=== PATIENT | female | born 1990 | race Caucasian/White ===

== ENCOUNTER 2018-06-06 19:06 | Emergency (ER) | payer OTHER, BC ==
[2018-06-06] MEDS ORDERED: diphenhydrAMINE 50 MG/ML SDV IVPUSH ONE (20:06)
[2018-06-06] MEDS ORDERED: Metoclopramide 10 MG/2 ML SDV IVPUSH ONE (20:06)
[2018-06-06] MEDS ORDERED: Sodium Chloride 0.9% 10 ML Syringe FLUSH PRN (20:06)
[2018-06-06] MEDS ORDERED: Ketorolac 30 MG/ML SDV IVPUSH ONE (20:06)
--- NOTE | 2018-06-06 20:14 | EDM.PDOC ---
ED HPI GENERAL MEDICAL PROBLEM - General Chief Complaint: Head Injury Stated Complaint: HEAD INJURY Time Seen by Provider: 06/06/18 19:53 Source of Information: Reports: Patient, RN Notes Reviewed History Limitations: Reports: No Limitations - History of Present Illness INITIAL COMMENTS - FREE TEXT/NARRATIVE: Patient is a 28-year-old female who presents to the ED [facility] for the evaluation of a head injury. She states that she sustained this head injury at work. 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 She notes that she has a headache that radiates all across the front of her head at about a 7 out of 10 right now. She did take some powdered aspirin for pain relief however this has not provided much relief. She noted some slightly blurry vision shortly after the incident, but does not relate any loss of consciousness or blackout. She further notes that she couldn't focus after the incident with also some mild nausea noted. She states she is not on any medications, no blood thinners does not have a history of blood clot/bruising/ easy bleeding, but is on a NuvaRing for control. She further notes that she does not have any primary care provider at this time. Frontal Headache Pain Score (Numeric/FACES): 5 - Related Data Allergies Allergy/AdvReac Type Severity Reaction Status Date / Time Penicillins Allergy Rash Verified 06/06/18 19:17 Home Meds: Home Meds Non-Formulary Medication [NF Drug] 1 each VAG ASDIRECTED 06/06/18 [History] Past Medical History Respiratory History: Reports: Asthma Neurological History: Reports: Migraines - Past Surgical History Musculoskeletal Surgical History: Reports: ORIF Social & Family History - Family History Family Medical History: Noncontributory - Tobacco Use Smoking Status *Q: Never Smoker - Caffeine Use Caffeine Use: Reports: Coffee - Recreational Drug Use Recreational Drug Use: No ED ROS GENERAL - Review of Systems Review Of Systems: See Below Constitutional: Reports: No Symptoms HEENT: Reports: No Symptoms Respiratory: Reports: No Symptoms Cardiovascular: Reports: No Symptoms Endocrine: Reports: No Symptoms GI/Abdominal: Reports: No Symptoms : Reports: No Symptoms Musculoskeletal: Reports: No Symptoms Skin: Reports: No Symptoms Neurological: Reports: Headache Psychiatric: Reports: No Symptoms Hematologic/Lymphatic: Reports: No Symptoms Immunologic: Reports: No Symptoms ED EXAM, HEAD INJURY - Physical Exam Exam: See Below Exam Limited By: No Limitations General Appearance: Alert, WD/WN, No Apparent Distress (Patient is able to answer questions appropriate relief, but seems somewhat sluggish) Head: Atraumatic, Normocephalic Nexus Criteria: No: Posterior, Midline Cervical Tenderness, Evidence of Intoxication, Altered Level of Consciousness, Focal Neurological Deficit, Painful Distraction Injuries Eyes: Bilateral Eye: EOMI, Normal Inspection, PERRL Ears: Normal External Exam, Normal Canal, Hearing Grossly Normal, Normal TMs Nose: Normal Inspection, Normal Mucousa, No Blood Throat/Mouth: Normal Inspection, Normal Lips, Normal Teeth, Normal Gums, Normal Oropharynx, Normal Voice, No Airway Compromise Neck: Non-Tender, Full Range of Motion, Normal Alignment, Normal Inspection Respiratory: No Respiratory Distress, Lungs Clear, Normal Breath Sounds, No Accessory Muscle Use, Chest Non-Tender Cardiovascular: Normal Peripheral Pulses, Regular Rate, Rhythm, No Murmur Back Exam: Normal Inspection, Full Range of Motion Extremities: Normal Inspection, Normal Capillary Refill Neurologic: No Motor/Sensory Deficits, Alert, Normal Mood/Affect, Oriented x 3 Skin: Normal Color, Warm/Dry - Cesar Coma Score Best Eye Response (Cesar): (4) Open Spontaneously Best Verbal Response ([place]): (5) Oriented Best Motor Response ([place]): (6) Obeys Commands Cesar Total: 15 Course - Vital Signs Last Recorded V/S: Last Vital Signs Temp 97.2 F 06/06/18 19:12 Pulse 63 06/06/18 19:12 Resp 18 06/06/18 19:12 BP 147/95 H 06/06/18 19:12 Pulse Ox 100 06/06/18 19:12 - Orders/Labs/Meds Orders: Active Orders 24 hr Category Date Time Status Peripheral IV Care [RC] . DIRECTED Care 06/06/18 20:06 Active Sodium Chloride 0.9% [Normal Saline] 1,000 ml Med 06/06/18 20:15 Active IV ASDIRECTED Sodium Chloride 0.9% [Saline Flush] Med 06/06/18 20:06 Active 10 ml FLUSH ASDIRECTED PRN Peripheral IV Insertion Adult [OM.PC] Routine Oth 06/06/18 20:06 Ordered Medication Orders Sodium Chloride (Normal Saline) 1,000 mls @ 125 mls/hr IV ASDIRECTED CALEB Last Admin: 06/06/18 20:20 Dose: 125 mls/hr Sodium Chloride (Saline Flush) 10 ml FLUSH ASDIRECTED PRN PRN Reason: Keep Vein Open Last Admin: 06/06/18 20:24 Dose: 10 ml Meds: Medications Generic Name Dose Route Start Last Admin Trade Name Freq PRN Reason Stop Dose Admin Sodium Chloride 1,000 mls @ 125 mls/hr 06/06/18 20:15 06/06/18 20:20 Normal Saline IV 125 mls/hr ASDIRECTED CALEB Administration Sodium Chloride 10 ml 06/06/18 20:06 06/06/18 20:24 Saline Flush FLUSH 10 ml ASDIRECTED PRN Administration Keep Vein Open Discontinued Medications Generic Name Dose Route Start Last Admin Trade Name Freq PRN Reason Stop Dose Admin Diphenhydramine HCl 25 mg 06/06/18 20:06 06/06/18 20:26 Benadryl IVPUSH 06/06/18 20:07 25 mg ONETIME ONE Administration Ketorolac Tromethamine 30 mg 06/06/18 20:06 06/06/18 20:23 Toradol IVPUSH 06/06/18 20:07 30 mg ONETIME ONE Administration Metoclopramide HCl 10 mg 06/06/18 20:06 06/06/18 20:20 Reglan IVPUSH 06/06/18 20:07 10 mg ONETIME ONE Administration - Re-Assessments/Exams Free Text/Narrative Re-Assessment/Exam: 06/06/18 20:14 Patient presents to the ED for the evaluation of head injury. She is complaining mostly of a headache at this time and does appear to elicit some postconcussive syndromes. I did order 10 mg IV Reglan, 25 mg IV Benadryl, 30 mg IV Toradol and an IV fluid bolus to help with the headache. I did educate the patient on postconcussive syndrome, she does not work tomorrow and states she will try to limit her activities. 06/06/18 21:10 Patient was reassessed at bedside and states that her headache has improved. She would like to go home and sleep tonight. I will discharge her home in care of her boyfriend who is currently in the room with her. Departure - Departure Time of Disposition: 21:11 Disposition: Home, Self-Care 01 Condition: Fair Clinical Impression: Post concussive syndrome Headache Qualifiers: Headache type: post-traumatic Headache chronicity pattern: acute headache Intractability: not intractable Qualified Code(s): G44.319 - Acute post- traumatic headache, not intractable - Discharge Information *PRESCRIPTION DRUG MONITORING PROGRAM REVIEWED*: No *COPY OF PRESCRIPTION DRUG MONITORING REPORT IN PATIENT KRISTIAN: No Instructions: Post-Concussion Syndrome, [id number], Head Injury, Adult, Easy- to-Read Referrals: PCP,None [Primary Care Provider] - Forms: ED Department Discharge Additional Instructions: You have been evaluated in the ED tonight for your headache and post concussion- like symptoms. You have been treated in the ED tonight with medications that should help your headache. Please limit activities over the next 24 hours so that you may give your brain some time to heal. Please limit screen time in this timeframe. You may return to work without restrictions on of this week. Please return to the ED if her symptoms change or worsen. - My Orders Last 24 Hours: My Active Orders 06/06/18 20:06 Peripheral IV Care [RC] . DIRECTED Sodium Chloride 0.9% [Saline Flush] 10 ml FLUSH ASDIRECTED PRN Peripheral IV Insertion Adult [OM.PC] Routine 06/06/18 20:15 Sodium Chloride 0.9% [Normal Saline] 1,000 ml IV ASDIRECTED - Assessment/Plan Last 24 Hours: My Active Orders 06/06/18 20:06 Peripheral IV Care [RC] . DIRECTED Sodium Chloride 0.9% [Saline Flush] 10 ml FLUSH ASDIRECTED PRN Peripheral IV Insertion Adult [OM.PC] Routine 06/06/18 20:15 Sodium Chloride 0.9% [Normal Saline] 1,000 ml IV ASDIRECTED
[2018-06-06] MEDS ORDERED: Sodium Chloride 0.9% 1,000 ML IV SCH (20:15)
== END 2018-06-06 21:27 | disposition home or self-care (01) ==
LOC: JD.ED 19:06
DX: G44.319 Acute post-traumatic headache, not intractable (principal); F07.81 Postconcussional syndrome
CPT/HCPCS: 96361; 96374; 96375; 99283; J1200; J1885; J2765; J7040; 99284

== ENCOUNTER 2018-06-08 13:16 | Emergency (ER) | payer OTHER, BC ==
[2018-06-08] MEDS ORDERED: Ketorolac 30 MG/ML SDV IVPUSH ONE (13:49)
[2018-06-08] MEDS ORDERED: Sodium Chloride 0.9% 10 ML Syringe FLUSH PRN (13:49)
[2018-06-08] MEDS ORDERED: diphenhydrAMINE 50 MG/ML SDV IVPUSH ONE (13:49)
[2018-06-08] MEDS ORDERED: Metoclopramide 10 MG/2 ML SDV IVPUSH ONE (13:49)
--- NOTE | 2018-06-08 13:57 | EDM.PDOC ---
ED HPI GENERAL MEDICAL PROBLEM - General Chief Complaint: Headache Stated Complaint: MIGRAINE Time Seen by Provider: 06/08/18 13:40 Source of Information: Reports: Patient, RN Notes Reviewed History Limitations: Reports: No Limitations - History of Present Illness INITIAL COMMENTS - FREE TEXT/NARRATIVE: Patient is a 28-year-old female who presents to the ED for the evaluation of a headache. She was seen in this ED 2 nights ago by myself and the evaluation of a head injury sustained at work. She states that yesterday she felt okay, however this morning her headache did come back. She states that the headache is again in her frontal area, and she states there is some mild light sensitivity as well. The headache is similar to the headache she had the night of the injury. She would rate her pain at a 7 out of 10 today. She states that she did take 800 mg of ibuprofen at around 11:30 today and this didn't provide much relief. She denies any blurred vision, double vision, states that she did have some mild dizziness this morning however. Headache Pain Score (Numeric/FACES): 7 - Related Data Allergies Allergy/AdvReac Type Severity Reaction Status Date / Time Penicillins Allergy Rash Verified 06/06/18 19:17 Home Meds: Home Meds Non-Formulary Medication [NF Drug] 1 each VAG ASDIRECTED 06/06/18 [History] Past Medical History Respiratory History: Reports: Asthma Neurological History: Reports: Concussion, Migraines - Past Surgical History Musculoskeletal Surgical History: Reports: ORIF Social & Family History - Family History Family Medical History: Noncontributory - Tobacco Use Smoking Status *Q: Never Smoker - Caffeine Use Caffeine Use: Reports: Coffee, Soda - Recreational Drug Use Recreational Drug Use: No ED ROS GENERAL - Review of Systems Review Of Systems: See Below Constitutional: Reports: No Symptoms HEENT: Reports: No Symptoms Respiratory: Reports: No Symptoms Cardiovascular: Reports: No Symptoms Endocrine: Reports: No Symptoms GI/Abdominal: Reports: No Symptoms : Reports: No Symptoms Musculoskeletal: Reports: No Symptoms Skin: Reports: No Symptoms Neurological: Reports: Dizziness, Headache. Denies: Confusion, Numbness, Syncope, Tingling Psychiatric: Reports: No Symptoms Hematologic/Lymphatic: Reports: No Symptoms Immunologic: Reports: No Symptoms - Physical Exam Exam: See Below Exam Limited By: No Limitations General Appearance: Alert, WD/WN, No Apparent Distress Eye Exam: Bilateral Eye: EOMI, Normal Inspection, PERRL Ears: Normal External Exam, Normal TMs Nose: Normal Inspection Throat/Mouth: Normal Inspection, Normal Oropharynx Head Exam: Atraumatic (patient has exaggerated pain response to area where she contused her forehead.), Normocephalic Neck: Normal Inspection, Supple, Non-Tender Respiratory/Chest: No Respiratory Distress, Lungs Clear, Normal Breath Sounds, No Accessory Muscle Use, Chest Non-Tender Cardiovascular: Normal Peripheral Pulses, Regular Rate, Rhythm, No Murmur Neuro Exam (Abbreviated): Alert, Oriented, Normal Cognition, No Motor/Sensory Deficits Back Exam: Normal Inspection, Full Range of Motion Extremities: Normal Inspection, Normal Capillary Refill Psychiatric: Normal Affect, Normal Mood Skin Exam: Warm, Dry, Intact, Normal Color, No Rash Course - Vital Signs Last Recorded V/S: Last Vital Signs Temp 97.6 F 06/08/18 13:37 Pulse 83 06/08/18 13:37 Resp 20 06/08/18 13:37 BP 116/86 06/08/18 13:37 Pulse Ox 98 06/08/18 13:37 - Orders/Labs/Meds Orders: Active Orders 24 hr Category Date Time Status Peripheral IV Care [RC] . DIRECTED Care 06/08/18 13:49 Active Peripheral IV Insertion Adult [OM.PC] Routine Oth 06/08/18 13:49 Ordered Meds: Medications Discontinued Medications Generic Name Dose Route Start Last Admin Trade Name Luis Alfredoq PRN Reason Stop Dose Admin Diphenhydramine HCl 25 mg 06/08/18 13:49 06/08/18 14:02 Benadryl IVPUSH 06/08/18 13:50 25 mg ONETIME ONE Administration Sodium Chloride 1,000 mls @ 500 mls/hr 06/08/18 14:00 06/08/18 14:03 Normal Saline IV 500 mls/hr ASDIRECTED CALEB Administration Ketorolac Tromethamine 30 mg 06/08/18 13:49 06/08/18 14:02 Toradol IVPUSH 06/08/18 13:50 30 mg ONETIME ONE Administration Metoclopramide HCl 10 mg 06/08/18 13:49 06/08/18 14:02 Reglan IVPUSH 06/08/18 13:50 10 mg ONETIME ONE Administration Sodium Chloride 10 ml 06/08/18 13:49 06/08/18 14:00 Saline Flush FLUSH 10 ml ASDIRECTED PRN Administration Keep Vein Open - Re-Assessments/Exams Free Text/Narrative Re-Assessment/Exam: 06/08/18 14:00 Patient presents to the ED for the evaluation of a headache after a head injury 2 days ago. I did order IV fluids, 25 mg IV Benadryl, 30 mg IV Toradol, 10 mg Reglan for initial management of her headache. Will likely give her a note to stay off of work for the weekend with conservative measures. 06/08/18 15:32 Patient was reassessed at bedside and states that she feels much better, her headache has resolved. She is asking to be discharged home at this time. That is fine with me and I will give her a note to excuse her from work for this weekend so she may recover from her head injury. Departure - Departure Time of Disposition: 15:40 Disposition: Home, Self-Care 01 Condition: Fair Clinical Impression: Tension-type headache - Discharge Information *PRESCRIPTION DRUG MONITORING PROGRAM REVIEWED*: No *COPY OF PRESCRIPTION DRUG MONITORING REPORT IN PATIENT KRISTIAN: No Instructions: Tension Headache, Adult, [id number] Referrals: PCP,None [Primary Care Provider] - Forms: ED Department Discharge, ED Return to Work/School Form Additional Instructions: You have been evaluated in the ED today for your headache. You have been given accommodation and medications to help with this headache. Please increase your fluid intake at home, and you may take 500 mg Tylenol/600 mg ibuprofen every 6 hours in an alternating fashion as needed for further headache. Please return to the ED if your symptoms change or worsen. - My Orders Last 24 Hours: My Active Orders 06/08/18 13:49 Peripheral IV Care [RC] . DIRECTED Peripheral IV Insertion Adult [OM.PC] Routine - Assessment/Plan Last 24 Hours: My Active Orders 06/08/18 13:49 Peripheral IV Care [RC] . DIRECTED Peripheral IV Insertion Adult [OM.PC] Routine
[2018-06-08] MEDS ORDERED: Sodium Chloride 0.9% 1,000 ML IV SCH (14:00)
== END 2018-06-08 15:50 | disposition home or self-care (01) ==
LOC: JD.ED 13:16
DX: G44.209 Tension-type headache, unspecified, not intractable (principal); Z88.0 Allergy status to penicillin
CPT/HCPCS: 96361; 96374; 96375; 99283; J1200; J1885; J2765; J7040; 99284

== ENCOUNTER 2018-11-11 15:25 | Emergency (ER) | payer BC ==
--- NOTE | 2018-11-11 16:05 | EDM.PDOC ---
ED HPI GENERAL MEDICAL PROBLEM - General Chief Complaint: Upper Extremity Injury/Pain Stated Complaint: PAIN IN BOTH WRISTS Time Seen by Provider: 11/11/18 15:45 Source of Information: Reports: Patient, RN Notes Reviewed History Limitations: Reports: No Limitations - History of Present Illness INITIAL COMMENTS - FREE TEXT/NARRATIVE: Patient is a 28 year old female who presents to the ED for evaluation of bilateral wrist pain. She notes that she's been having issues with the wrist numbness for about the past year, but over the past few months this has developed into shooting pains that radiate up to her elbow. 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 She has tried wrist splints during the day at work and at night, and does take ibuprofen and Aleve when she feels the pain is out of control. She does not take this on a regular basis. She feels as if the splints help a little bit but not a whole awful lot, she states if she applies direct pressure to the anterior portion of her left wrist this seems to help the pain the most. She reports numbness and tingling in the fingers, with shooting pains that radiate up to the elbow as previously described. Patient states that the left wrist is worse than the right, however the right is now starting to cause her issues as well. She does not have a primary care provider nor has she followed up with anyone for this. Bilateral Wrist Pain Score (Numeric/FACES): 6 - Related Data Allergies Allergy/AdvReac Type Severity Reaction Status Date / Time Penicillins Allergy Rash Verified 06/06/18 19:17 Home Meds: Home Meds Non-Formulary Medication [NF Drug] 1 each VAG ASDIRECTED 06/06/18 [History] predniSONE [Deltasone] 20 mg PO ASDIRECTED #15 tablet 11/11/18 [Rx] traMADol [Ultram] 50 mg PO Q6H PRN #16 tab 11/11/18 [Rx] Past Medical History Respiratory History: Reports: Asthma Neurological History: Reports: Concussion, Migraines - Past Surgical History Musculoskeletal Surgical History: Reports: ORIF Other Musculoskeletal Surgeries/Procedures:: left ORIF Social & Family History - Family History Family Medical History: Noncontributory - Tobacco Use Smoking Status *Q: Never Smoker - Caffeine Use Caffeine Use: Reports: Coffee, Energy Drinks, Soda - Recreational Drug Use Recreational Drug Use: No Review of Systems - Review of Systems Review Of Systems: See Below Constitutional: Reports: No Symptoms Eyes: Reports: No Symptoms Ears: Reports: No Symptoms Nose: Reports: No Symptoms Mouth/Throat: Reports: No Symptoms Respiratory: Reports: No Symptoms Cardiovascular: Reports: No Symptoms GI/Abdominal: Reports: No Symptoms Genitourinary: Reports: No Symptoms Musculoskeletal: Reports: Joint Pain (bilateral wrists) Skin: Reports: No Symptoms Neurological: Reports: Numbness (bilateral wrists), Tingling (bilateral wrists) Psychiatric: Reports: No Symptoms ED EXAM, GENERAL - Physical Exam Exam: See Below Exam Limited By: No Limitations General Appearance: Alert, WD/WN, No Apparent Distress Respiratory/Chest: No Respiratory Distress, Lungs Clear, Normal Breath Sounds, No Accessory Muscle Use, Chest Non-Tender Cardiovascular: Normal Peripheral Pulses, Regular Rate, Rhythm, No Murmur Peripheral Pulses: 3+: Radial (L), Radial (R) Extremities: Normal Inspection, Normal Range of Motion, Normal Capillary Refill , Other (Tinel's sign positive bilaterally) Neurological: Alert, Oriented, Normal Cognition, No Motor/Sensory Deficits Psychiatric: Normal Affect, Normal Mood Skin Exam: Warm, Dry, Intact, Normal Color, No Rash Course - Vital Signs Last Recorded V/S: Last Vital Signs Temp 97.7 F 11/11/18 15:40 Pulse 83 11/11/18 15:40 Resp 20 11/11/18 15:40 BP 127/87 11/11/18 15:40 Pulse Ox 99 11/11/18 15:40 - Re-Assessments/Exams Free Text/Narrative Re-Assessment/Exam: 11/11/18 16:19 Patient presents to the ED for evaluation of bilateral wrist pain and numbness. Her symptoms are consistent with a carpal tunnel syndrome in nature. I did give her general recommendations and told her to keep doing what she is doing and prescribed her some prednisone and tramadol for further management. She will need to follow up with primary care physician of her choosing for a referral to a specialist. \ Departure - Departure Time of Disposition: 16:01 Disposition: Home, Self-Care 01 Condition: Fair Clinical Impression: Carpal tunnel syndrome, bilateral - Discharge Information *PRESCRIPTION DRUG MONITORING PROGRAM REVIEWED*: No *COPY OF PRESCRIPTION DRUG MONITORING REPORT IN PATIENT KRISTIAN: No Prescriptions: predniSONE [Deltasone] 20 mg PO ASDIRECTED #15 tablet traMADol [Ultram] 50 mg PO Q6H PRN #16 tab PRN Reason: Pain Instructions: Carpal Tunnel Syndrome, [id number] Referrals: PCP,None [Primary Care Provider] - Forms: ED Department Discharge Additional Instructions: You were evaluated today in the ED for your wrist pain. Your symptoms are likely due to some sort of carpal tunnel pain in nature. Please continue to use the splints for work and at nighttime use to help relieve the symptoms of carpal tunnel. Given a prescription for prednisone, please take 2 tabs today, and then take as directed for the rest of the medication. You were also given a prescription for tramadol in case the pain does not get better with the prednisone alone. These were electrically sent to the [facility] pharmacy located near [facility]. Please follow up with a family practice provider of your choosing, our [facility] clinic number [phone], the [facility] number is [phone]. They will be able to evaluate you and try to refer you to a specialist regarding your carpal tunnel. Please return to the ED if your symptoms change or worsen.
== END 2018-11-11 16:14 | disposition home or self-care (01) ==
LOC: JD.ED 15:25
DX: G56.03 Carpal tunnel syndrome, bilateral upper limbs (principal); J45.909 Unspecified asthma, uncomplicated; Z88.0 Allergy status to penicillin
CPT/HCPCS: 99283

== ENCOUNTER 2020-05-30 01:06 | Emergency (ER) | payer BC ==
[2020-05-30] MEDS ORDERED: EPINEPHrine 1 MG/ML SDV SUBCUT ONE (01:12)
[2020-05-30] MEDS ORDERED: methylPREDNISolone Sodium Succinate 125 MG/2 ML SDV IVPUSH ONE (01:12)
--- NOTE | 2020-05-30 02:08 | EDM.PDOC ---
ED HPI GENERAL MEDICAL PROBLEM - General Chief Complaint: Respiratory Problem Stated Complaint: SOB Time Seen by Provider: 05/30/20 01:08 Source of Information: Reports: Patient History Limitations: Reports: No Limitations - History of Present Illness INITIAL COMMENTS - FREE TEXT/NARRATIVE: The patient has had shortness of breath onset yesterday afternoon about 1 PM approximately 12 hours prior to arrival at the ER. She has a history of asthma. She says the respiratory symptoms she was experiencing seemed much worse than her usual asthma exacerbation. She has been using albuterol inhaler and nebulizer "about 20 times" without improvement. She is actually gradually worsened. Other than asthma there are no readily identified additional risk factors though the patient does have [id number] diabetes and has a history of light tobacco smoking but has not smoked for 3 years. Leading up to this there is been no fever cough or other respiratory symptoms dysuria or any other symptom of acute medical illness or condition. Chest Pain Score (Numeric/FACES): 8 - Related Data Allergies Allergy/AdvReac Type Severity Reaction Status Date / Time Penicillins Allergy Rash Verified 05/30/20 01:15 Home Meds: Home Meds Albuterol [Ventolin HFA] 8 gm .XX 05/30/20 [History] Etonogestrel/Ethinyl Estradiol [Etonogestrel-Ee Vaginal Ring] 05/30/20 [History] metFORMIN [Glucophage] 05/30/20 [History] Past Medical History Respiratory History: Reports: Asthma Neurological History: Reports: Concussion, Migraines Endocrine/Metabolic History: Reports: Diabetes, Type II - Past Surgical History Musculoskeletal Surgical History: Reports: ORIF Other Musculoskeletal Surgeries/Procedures:: left ORIF Social & Family History - Family History Family Medical History: No Pertinent Family History - Tobacco Use Tobacco Use Status *Q: Former Tobacco User - Caffeine Use Caffeine Use: Reports: Coffee, Energy Drinks, Soda ED ROS GENERAL - Review of Systems Review Of Systems: Comprehensive ROS is negative, except as noted in HPI. ED EXAM, GENERAL - Physical Exam Exam: See Below Free Text/Narrative:: On exam the patient is alert and in moderate respiratory difficulty. She looks quite uncomfortable from her respiratory status but is able to speak in short sentences. Skin is warm and dry with normal turgor. Head normocephalic atraumatic. PERRLA EOMI. ENT grossly normal. There is no vocal stridor. Neck is supple without jugular venous distention. On initial exam the breath sounds were markedly diminished bilaterally and some mild wheezing was detected. Heart regular with mild tachycardia. Abdomen soft and nontender no mass organomegaly guarding or rebound. No peripheral edema cyanosis or clubbing of the digits. Neurologically she is intact with fluent speech symmetrical gait and no sensory or motor deficit. Her mood and affect are normal. #1 Interpretation EKG Date: 05/30/20 Time: 01:25 Rhythm: NSR Rate (Beats/Min): 101 [place]: Normal P-Wave: Present QRS: Normal QT: Normal WA/PQ Interval: 226ms EKG Interpretation Comments: Nonspecific ST/T changes, no acute ischemic change, mild tachycardia. First- degree AV block. Course - Vital Signs Text/Narrative:: Early on the patient received 1/2 mg of epinephrine subcutaneously. She also received 125 mg of Solu-Medrol IV. Within a short while perhaps 15 minutes after administration of the epinephrine her lungs were clear on auscultation except for some mild coarseness and she had full and equal breath sounds. P otassium was 3.1 and 40 mEq were given p.o. Chest x-ray does not show any focal infiltrate. There is a 15,000 white count probably reactive from the respiratory difficulty which patient endured about 12 hours. No urinary tract infection. No persuasive evidence of a lower respiratory tract infection needing to be treated. I do not think she requires p.o. steroids after discharge. She is to call her primary today for follow-up instructions. Strict precautions for return to ER. Last Recorded V/S: Last Vital Signs Temp 36.2 C 05/30/20 01:11 Pulse 115 H 05/30/20 01:11 Resp 22 H 05/30/20 01:11 BP 172/110 H 05/30/20 01:11 Pulse Ox 100 05/30/20 01:11 - Orders/Labs/Meds Orders: Active Orders 24 hr Category Date Time Status EKG Documentation Completion [RC] STAT Care 05/30/20 01:16 Active RT Arterial Blood Gases, ABG [RC] Click to Edit Care 05/30/20 01:16 Active Chest 1V Frontal [CR] Stat Exams 05/30/20 03:08 Taken HCG QUALITATIVE,URINE [URCHEM] Stat Lab 05/30/20 02:38 Received UA RFX MANISH AND CULT IF INDIC [URIN] Stat Lab 05/30/20 02:38 Received Labs: Laboratory Tests 05/30/20 05/30/20 05/30/20 Range/Units 01:27 01:27 01:27 WBC 14.97 H (3.98-10.04) K/mm3 RBC 5.05 (3.98-5.22) M/mm3 Hgb 13.6 (11.2-15.7) gm/dl Hct 41.5 (34.1-44.9) % MCV 82.2 (79.4-94.8) fl MCH 26.9 (25.6-32.2) pg MCHC 32.8 (32.2-35.5) g/dl RDW Std Deviation 39.2 (36.4-46.3) fL Plt Count 346 (182-369) K/mm3 MPV 8.8 L (9.4-12.3) fl Neutrophils % (Manual) 64 H (40-60) % Band Neutrophils % 1 (0-10) % Lymphocytes % (Manual) 29 (20-40) % Atypical Lymphs % 0 % Monocytes % (Manual) 6 (2-10) % Eosinophils % (Manual) 0 L (0.7-5.8) % Basophils % (Manual) 0 L (0.1-1.2) Platelet Estimate Adequate RBC Morph Comment Normal D-Dimer, Quantitative 0.26 (0.19-0.50) mg/L Puncture Site ABG pH (7.35-7.45) ABG pCO2 (35.0-45.0) mmHg ABG pO2 (80.0-100.0) mmHg ABG HCO3 (22.0-26.0) meq/L ABG O2 Saturation (96.0-97.0) % ABG Base Excess (-2-2.0) [place] Test A-a Gradient mmHg O2 Delivery Device Oxygen Flow Rate FiO2 (21.00-100.00) % Sodium 140 (136-145) mEq/L Potassium 3.1 L (3.5-5.1) mEq/L Chloride 102 (98-107) mEq/L Carbon Dioxide 23 (21-32) mEq/L Anion Gap 18.1 H (5-15) BUN 12 (7-18) mg/dL Creatinine 0.9 (0.55-1.02) mg/dL Est Cr Clr Drug Dosing TNP Estimated GFR (MDRD) > 60 (>60) mL/min BUN/Creatinine Ratio 13.3 L (14-18) Glucose 112 H (74-106) mg/dL Calcium 9.2 (8.5-10.1) mg/dL Magnesium 2.1 (1.8-2.4) mg/dl Total Bilirubin 0.4 (0.2-1.0) mg/dL AST 15 (15-37) U/L ALT 23 (14-59) U/L Alkaline Phosphatase 74 (46-116) U/L Troponin I < 0.017 (0.00-0.056) ng/mL Total Protein 8.2 (6.4-8.2) g/dl Albumin 3.5 (3.4-5.0) g/dl Globulin 4.7 gm/dL Albumin/Globulin Ratio 0.7 L (1-2) Urine Color (Yellow) Urine Appearance (Clear) Urine pH (5.0-8.0) Ur Specific [place] (1.005-1.030) Urine Protein (Negative) Urine Glucose (UA) (Negative) Urine Ketones (Negative) Urine Occult Blood (Negative) Urine Nitrite (Negative) Urine Bilirubin (Negative) Urine Urobilinogen (0.2-1.0) Ur Leukocyte Esterase (Negative) Urine HCG, Qual (NEGATIVE) 05/30/20 05/30/20 05/30/20 Range/Units 01:34 02:38 02:38 WBC (3.98-10.04) K/mm3 RBC (3.98-5.22) M/mm3 Hgb (11.2-15.7) gm/dl Hct (34.1-44.9) % MCV (79.4-94.8) fl MCH (25.6-32.2) pg MCHC (32.2-35.5) g/dl RDW Std Deviation (36.4-46.3) fL Plt Count (182-369) K/mm3 MPV (9.4-12.3) fl Neutrophils % (Manual) (40-60) % Band Neutrophils % (0-10) % Lymphocytes % (Manual) (20-40) % Atypical Lymphs % % Monocytes % (Manual) (2-10) % Eosinophils % (Manual) (0.7-5.8) % Basophils % (Manual) (0.1-1.2) Platelet Estimate RBC Morph Comment D-Dimer, Quantitative (0.19-0.50) mg/L Puncture Site Lt radial ABG pH 7.44 (7.35-7.45) ABG pCO2 32.1 L (35.0-45.0) mmHg ABG pO2 87.0 (80.0-100.0) mmHg ABG HCO3 21.3 L (22.0-26.0) meq/L ABG O2 Saturation 97.3 H (96.0-97.0) % ABG Base Excess -1.6 (-2-2.0) [place] Test Positive A-a Gradient 22 mmHg O2 Delivery Device Room air Oxygen Flow Rate 0.0 FiO2 21.00 (21.00-100.00) % Sodium (136-145) mEq/L Potassium (3.5-5.1) mEq/L Chloride (98-107) mEq/L Carbon Dioxide (21-32) mEq/L Anion Gap (5-15) BUN (7-18) mg/dL Creatinine (0.55-1.02) mg/dL Est Cr Clr Drug Dosing Estimated GFR (MDRD) (>60) mL/min BUN/Creatinine Ratio (14-18) Glucose (74-106) mg/dL Calcium (8.5-10.1) mg/dL Magnesium (1.8-2.4) mg/dl Total Bilirubin (0.2-1.0) mg/dL AST (15-37) U/L ALT (14-59) U/L Alkaline Phosphatase (46-116) U/L Troponin I (0.00-0.056) ng/mL Total Protein (6.4-8.2) g/dl Albumin (3.4-5.0) g/dl Globulin gm/dL Albumin/Globulin Ratio (1-2) Urine Color Yellow (Yellow) Urine Appearance Clear (Clear) Urine pH 5.5 (5.0-8.0) Ur Specific [place] > or = 1.030 (1.005-1.030) Urine Protein Trace H (Negative) Urine Glucose (UA) Negative (Negative) Urine Ketones Trace H (Negative) Urine Occult Blood 2+ H (Negative) Urine Nitrite Negative (Negative) Urine Bilirubin Negative (Negative) Urine Urobilinogen 0.2 (0.2-1.0) Ur Leukocyte Esterase Negative (Negative) Urine HCG, Qual Negative (NEGATIVE) Meds: Medications Discontinued Medications Generic Name Dose Route Start Last Admin Trade Name Darrel PRN Reason Stop Dose Admin Epinephrine HCl 0.5 mg 05/30/20 01:12 05/30/20 01:25 Epinephrine 1 Mg/Ml Sdv SUBCUT 05/30/20 01:13 0.5 mg ONETIME ONE Administration Methylprednisolone Sodium Succinate 125 mg 05/30/20 01:12 05/30/20 01:27 Methylprednisolone Sodium Succinate 125 Mg/2 Ml Sdv IVPUSH 05/30/20 01:13 125 mg ONETIME ONE Administration Potassium Chloride 40 meq 05/30/20 02:58 05/30/20 03:03 Potassium Chloride 20 Meq Tab.Er PO 05/30/20 02:59 40 meq ONETIME ONE Administration Departure - Departure Time of Disposition: 03:32 Disposition: Home, Self-Care 01 Condition: Good Clinical Impression: Hypokalemia Asthma exacerbation Qualifiers: Asthma severity: moderate Asthma persistence: unspecified Qualified Code(s): J45.901 - Unspecified asthma with (acute) exacerbation - Discharge Information Forms: ED Department Discharge Additional Instructions: You have been seen for an apparent exacerbation of your asthma. You have received epinephrine 0.5 mg subcutaneously. You have also received Solu-Medrol 125 mg IV. Your potassium was noted to be 3.1 and you have also received 40 mEq dose of potassium chloride orally. Call your primary physician today and make arrangements for close follow-up. There does not seem to be a need for a steroid after discharge or an antibiotic. In the event of fever, any respiratory difficulty, productive cough, or any experience of not feeling well return to the ER right away. Sepsis Event Note (ED) - Evaluation Sepsis Screening Result: No Definite Risk - Focused Exam Vital Signs: Vital Signs Temp Pulse Resp BP Pulse Ox 05/30/20 01:11 36.2 C 115 H 22 H 172/110 H 100 - My Orders Last 24 Hours: My Active Orders 05/30/20 01:16 EKG Documentation Completion [RC] STAT RT Arterial Blood Gases, ABG [RC] Click to Edit 05/30/20 02:38 HCG QUALITATIVE,URINE [URCHEM] Stat UA RFX MANISH AND CULT IF INDIC [URIN] Stat 05/30/20 03:08 Chest 1V Frontal [CR] Stat - Assessment/Plan Last 24 Hours: My Active Orders 05/30/20 01:16 EKG Documentation Completion [RC] STAT RT Arterial Blood Gases, ABG [RC] Click to Edit 05/30/20 02:38 HCG QUALITATIVE,URINE [URCHEM] Stat UA RFX MANISH AND CULT IF INDIC [URIN] Stat 05/30/20 03:08 Chest 1V Frontal [CR] Stat
[2020-05-30] MEDS ORDERED: Potassium Chloride 20 MEQ Tab.ER PO ONE (02:58)
--- NOTE | 2020-05-30 08:07 | CR ---
Chest: Portable view of the chest was obtained. Comparison: No prior chest imaging is available. Minimal atelectasis is seen within the right mid to lower lung. Lungs otherwise are clear. Heart size and mediastinum are normal. Bony structures show nothing acute. Impression: 1. Minimal right-sided atelectasis. 2. Nothing acute is otherwise seen on portable chest x-ray. Diagnostic code #2
== END 2020-05-30 03:45 | disposition home or self-care (01) ==
LOC: JD.ED 01:06
DX: J45.901 Unspecified asthma with (acute) exacerbation (principal); E87.6 Hypokalemia; E11.9 Type 2 diabetes mellitus without complications; F17.200 Nicotine dependence, unspecified, uncomplicated; Z88.0 Allergy status to penicillin; Z79.84 Long term (current) use of oral hypoglycemic drugs
CPT/HCPCS: 36415; 36600; 71045; 80053; 81001; 81025; 82803; 83735; 84484; 85007; 85027; 85379; 93005; 96372; 96374; 99285; A9270; J0171; J2930; 93010; 99284

== ENCOUNTER 2021-02-16 04:51 | Emergency (ER) | payer BC ==
[2021-02-16] MEDS ORDERED: Acetaminophen 325 MG Tab PO ONE (05:35)
--- NOTE | 2021-02-16 05:55 | EDM.PDOC ---
ED HPI GENERAL MEDICAL PROBLEM - General Chief Complaint: Fever Stated Complaint: FEVER/CHILLS/COUGH Time Seen by Provider: 02/16/21 05:47 - History of Present Illness INITIAL COMMENTS - FREE TEXT/NARRATIVE: He 10-year-old female presents the emergency room not feeling well. Patient has a minimal cough she is developed some fevers and chills and she is sweaty all over. This started about 1 AM this morning. She came over from work to get tested for Covid I would think. The patient has had her flu shots and she has had both of the initial Materna vaccines. She believes her second dose was in May. She is urged to follow-up for the booster. She suffers from type 2 diabetes diet controlled. She does not appear to be on any medications for this. She is on control. Generalized Pain Score (Numeric/FACES): 6 - Related Data Allergies Allergy/AdvReac Type Severity Reaction Status Date / Time Penicillins Allergy Rash Verified 02/16/21 05:03 Home Meds: Home Meds Etonogestrel/Ethinyl Estradiol [Etonogestrel-Ee Vaginal Ring] 1 tab PO DAILY 02/16/21 [History] Folic Acid 1 mg PO DAILY 02/16/21 [History] Multivit-Min/Iron/Folic Acid/K [Multi For Her Softgel] 1 tab PO DAILY 02/16/21 [History] Justice's Wort 1 tab PO DAILY 02/16/21 [History] Past Medical History Respiratory History: Reports: Asthma Neurological History: Reports: Concussion, Migraines Endocrine/Metabolic History: Reports: Diabetes, Type II - Past Surgical History Musculoskeletal Surgical History: Reports: Carpal Tunnel, ORIF Other Musculoskeletal Surgeries/Procedures:: left ORIF Social & Family History - Family History Family Medical History: No Pertinent Family History - Tobacco Use Tobacco Use Status *Q: Never Tobacco User Second Hand Smoke Exposure: No - Caffeine Use Caffeine Use: Reports: Tea - Recreational Drug Use Recreational Drug Use: No ED ROS GENERAL - Review of Systems Review Of Systems: See Below Constitutional: Reports: Fever, Chills, Malaise HEENT: Reports: No Symptoms Respiratory: Reports: Cough (She describes a cough that is mostly from a tickle in the back of her throat.). Denies: Shortness of Breath Cardiovascular: Reports: No Symptoms Endocrine: Reports: No Symptoms GI/Abdominal: Reports: Decreased Appetite. Denies: Abdominal Pain, Black Stool, Bloody Stool, Constipation : Reports: No Symptoms Musculoskeletal: Reports: No Symptoms Skin: Reports: No Symptoms Neurological: Reports: No Symptoms Psychiatric: Reports: No Symptoms ED EXAM, GENERAL - Physical Exam Exam: See Below Exam Limited By: No Limitations General Appearance: Alert, No Apparent Distress Eye Exam: Bilateral Eye: EOMI, Normal Inspection, PERRL Ears: Normal External Exam, Normal Canal, Hearing Grossly Normal. No: Normal TMs (Both tympanic membranes appear to have some scarring.) Nose: Normal Inspection, Normal Mucosa, No Blood Throat/Mouth: Normal Inspection Head: Atraumatic, Normocephalic Neck: Normal Inspection, Supple, Non-Tender, Full Range of Motion Respiratory/Chest: No Respiratory Distress, Lungs Clear, Normal Breath Sounds, No Accessory Muscle Use, Chest Non-Tender Cardiovascular: Normal Peripheral Pulses, Regular Rate, Rhythm, No Edema, No Gallop, No JVD, No Murmur, No Rub GI/Abdominal: Normal Bowel Sounds, Soft, Non-Tender, No Organomegaly, No Distention, No Abnormal Bruit, No Mass Back Exam: Normal Inspection. No: CVA Tenderness (L), CVA Tenderness (R) Course - Vital Signs Last Recorded V/S: Last Vital Signs Temp 36.6 C 02/16/21 04:59 Pulse 137 H 02/16/21 04:59 Resp 20 02/16/21 04:59 BP 154/91 H 02/16/21 04:59 Pulse Ox 98 02/16/21 04:59 - Orders/Labs/Meds Labs: Laboratory Tests 02/16/21 Range/Units 05:07 Influenza Type A RNA Negative (NEGATIVE) Influenza Type B RNA Negative (NEGATIVE) SARS-CoV-2 RNA (YURI) Negative (NEGATIVE) Meds: Medications Discontinued Medications Generic Name Dose Route Start Last Admin Trade Name Freq PRN Reason Stop Dose Admin Acetaminophen 1,000 mg 02/16/21 05:35 02/16/21 05:41 Acetaminophen 325 Mg Tab PO 02/16/21 05:36 975 mg NOW ONE Administration - Re-Assessments/Exams Free Text/Narrative Re-Assessment/Exam: 02/16/21 06:04 At this point we are awaiting a Covid and influenza screen. With a several hour history of illness that is acting very much like a viral illness I do not believe labs or x-rays can offer as much. 02/16/21 07:44 Covid influenza screen is negative at this point. Discharge recommend Tylenol and/or Motrin as needed for discomfort Departure - Departure Time of Disposition: 07:46 Disposition: Home, Self-Care 01 Clinical Impression: Fever, Viral upper respiratory illness - Discharge Information Referrals: Makenzie Pathak PA-C [Primary Care Provider] - Forms: ED Department Discharge Additional Instructions: Return to the emergency room with any questions problems or worsening symptoms. Push lots of fluids. Tylenol and/or Motrin as needed for fever discomfort. Sepsis Event Note (ED) - Focused Exam Vital Signs: Vital Signs Temp Pulse Resp BP Pulse Ox 02/16/21 04:59 36.6 C 137 H 20 154/91 H 98
[2021-02-16 06:04] LABS: CORONAVIRUS COVID-19 NAA NEGATIVE (NEGATIVE)
== END 2021-02-16 09:24 | disposition home or self-care (01) ==
LOC: JD.ED 04:51
DX: J06.9 Acute upper respiratory infection, unspecified (principal); E11.9 Type 2 diabetes mellitus without complications; Z88.0 Allergy status to penicillin; Z20.822 Contact with and (suspected) exposure to COVID-19
CPT/HCPCS: 0240U; 99283; A9270

== ENCOUNTER 2024-11-06 08:22 | Emergency (ER) | payer BC ==
[2024-11-06] MEDS ORDERED: Sodium Chloride 0.9% 10 ML Syringe FLUSH PRN (08:56)
[2024-11-06] MEDS: diphenhydrAMINE 50 MG/ML SDV IVPUSH ONE (09:07)
[2024-11-06] MEDS: Ketorolac 30 MG/ML SDV IVPUSH ONE (09:12)
[2024-11-06 09:14] LABS: BASOPHILS ABSOLUTE AUTO 0.1 K/mm3 (0.0-0.2); BASOPHILS PERCENT AUTO 0.4 % (0.0-1.0); EOSINOPHILS ABSOLUTE AUTO 0.3 K/mm3 (0.0-0.4); EOSINOPHILS PERCENT AUTO 2.5 % (0.0-6.0); IMMATURE GRAN ABSOLUTE AUTO 0.06 K/mm3 (0.00-0.05); IMMATURE GRAN PERCENT AUTO 0.4 % (0.0-0.4); LYMPHOCYTES ABSOLUTE AUTO 4.9 K/mm3 (1.0-4.8); LYMPHOCYTES PERCENT AUTO 35.4 % (24.0-44.0); MEAN PLATELET VOLUME 8.7 fl (9.4-12.3); MONOCYTES ABSOLUTE AUTO 0.9 K/mm3 (0.0-0.8); MONOCYTES PERCENT AUTO 6.7 % (0.0-8.0); NEUTROPHILS ABSOLUTE AUTO 7.5 K/mm3 (1.8-7.7); NEUTROPHILS PERCENT AUTO 54.6 % (41.0-71.0); NRBC ABSOLUTE 0.00 (0.00-0.02); NRBC PERCENT 0.0 % (0.0-0.2); PLATELET COUNT,PLT 347 K/mm3 (150-400); RED BLOOD CELL COUNT 5.19 M/mm3 (4.10-5.30); WHITE BLOOD CELL COUNT,WBC 13.79 K/mm3 (3.9-11.3)
[2024-11-06 09:29] LABS: A/G RATIO 0.9 (1-2); ALANINE AMINOTRANSFERASE,ALT 34.0 U/L (14-59); ASPARTATE AMNIOTRANSFERASE,AST 21.0 U/L (15-37); BILIRUBIN TOTAL 0.8 mg/dL (0.2-1.0); BLOOD UREA NITROGEN,BUN 11.0 mg/dL (7-18); CARBON DIOXIDE,CO2 25.0 mEq/L (21-32); CHLORIDE,CL 102.0 mEq/L (98-107); CREATININE 0.9 mg/dL (0.55-1.02); EST CRCL DRUG DOSING (CG) 80.75 mL/min; ESTIMATED GFR 87.0 mL/min (>60); GLUCOSE RANDOM 154.0 mg/dL (70-99); POTASSIUM,K 3.2 mEq/L (3.5-5.1); PROTEIN TOTAL,TP 8.3 g/dl (6.4-8.2); SODIUM,NA 140.0 mEq/L (136-145)
== END 2024-11-06 11:05 | disposition home or self-care (01) ==
LOC: JD.ED 08:22
DX: G44.319 Acute post-traumatic headache, not intractable (principal); R11.2 Nausea with vomiting, unspecified; E11.9 Type 2 diabetes mellitus without complications; Z79.899 Other long term (current) drug therapy; Z88.0 Allergy status to penicillin
CPT/HCPCS: 36415; 70450; 80053; 83735; 85025; 96361; 96374; 96375; 99284; J1200; J1885; J2765; J7030